=== PATIENT | female | born 1960 | race Caucasian/White ===

== ENCOUNTER 2017-08-09 19:16 | Emergency (ER) | payer OTHER, MEDICAID ==
[2017-08-09 23:23] VITALS: BP 134/87
== END 2017-08-09 23:23 | disposition home or self-care (01) ==
LOC: ED 19:16
DX: S92.505A Nondisplaced unspecified fracture of left lesser toe(s), initial encounter for closed fracture (principal); S80.01XA Contusion of right knee, initial encounter; M79.7 Fibromyalgia; I10 Essential (primary) hypertension; W11.XXXA Fall on and from ladder, initial encounter; Y93.89 Activity, other specified; Y99.8 Other external cause status; Y92.89 Other specified places as the place of occurrence of the external cause
CPT/HCPCS: J1885